=== PATIENT | female | born 1990 | race Caucasian/White ===

== ENCOUNTER 2018-08-09 05:15 | Inpatient (IN) | payer BC ==
[~2018-08-09] VITALS: Ht 165.2 cm; Wt 197.0 kg
[2018-08-09] VITALS (63 sets, daily range): BP systolic 103–148; BP diastolic 50–84; PULSE 78–126; TEMP 97.4–99.3
[~2018-08-09 05:15] MED LIST: CEPHALEXIN500 M1 PO; MOTRIN 600600 MG/TAB PO; OSCAL 500 TAB500 MG; PERCOCET 325 MG1 TA2 PO; PRENATAL1 TA7 PO
--- NOTE | 2018-08-09 06:30 | NUR ---
Assumed care of patient. States not knowing what she wants to do. States maybe would like to v-daniel instead of section. heart tones down in the sixtys for a minute. Repositioned to right side. heart rate back up to [address] Telles called and updated on decel down in the sixtys for a minute. Let him know that heart tones back up to 130s with accelerations noted. Also let him know that patient would like to visit with him about v-daniel verses section.
[2018-08-09 06:38] LABS: BASO % 0.2 % (0.0-2.0); EOS # 0.2 (0.0-0.7); EOS % 1.3 % (0-4.0); HEMOGLOBIN 13.3 g/dl (12.5-16.0); LYMPH # 1.6 (1.2-3.4); LYMPH % 10.1 % (20.0-51.0); MEAN CELL VOLUME 88 fl (80.0-100.0); MEAN CORPUSCULAR HEMOGLOBIN 30 pg (27.0-31.0); MEAN CORPUSCULAR HGB CONC 34 g/dl (33.0-37.0); MEAN PLATELET VOLUME 12.3 fl (7.4-10.4); PLATELET COUNT 162 K/mm3 (130-400); RED BLOOD COUNT 4.43 M/mm3 (4.10-5.30)
--- NOTE | 2018-08-09 07:05 | NUR ---
Dr. Telles here, visits with patient and spouse about . Vag exam done, reports dilated to two, eighty percent effaced, minus two. 0715 New orders to patient. Ambulates to labor room three. heart monitor on. heart rate 130 with accelerations noted. Oriented to room.
--- NOTE | 2018-08-09 07:47 | NUR ---
Pen g 5 million units iv given as ordered and per protocol for group b strep positive.
--- NOTE | 2018-08-09 08:45 | NUR ---
Dr. Telles here, visits with patient. 0849 Arom done, moderate amount of clear fluid noted, pad changed.
--- NOTE | 2018-08-09 10:30 | NUR ---
States contractions getting stronger. Denies wanting any pain medication at this time.
--- NOTE | 2018-08-09 10:45 | NUR ---
1050 Anesthesia notified of request for epidural.
--- NOTE | 2018-08-09 11:00 | NUR ---
1110 Anesthesia here, visits with patient. Sits up for epidural. 1116 Space obtained, and straight shot given by anesthesia Taqueria Guzman c.r.n.a.
--- NOTE | 2018-08-09 11:15 | NUR ---
1122 Lies down after epidural. Spouse at bedside.
--- NOTE | 2018-08-09 11:30 | NUR ---
Rests in bed, alert. States feeling better. Rests with eyes closed, resperations even and unlabored.
--- NOTE | 2018-08-09 11:45 | NUR ---
1150 Pen g 2.5 million units iv given as ordered and per protocol. 1158 Cherry catheter placed per sterile technique. Moderate amount of clear yellow urine noted.
--- NOTE | 2018-08-09 12:15 | NUR ---
Dr. Telles here, visits with patient. Lynettee done, reports same as before. Orders to start pitocin.
--- NOTE | 2018-08-09 12:30 | NUR ---
Pitocin 2 lizbeth units iv started as ordered and per protocol.
--- NOTE | 2018-08-09 13:45 | NUR ---
Rests in bed with eyes closed. Resperations even and unlabored. Spouse at bedside.
--- NOTE | 2018-08-09 15:00 | NUR ---
1510 Dr. Telles here, visits with patient.
--- NOTE | 2018-08-09 16:00 | NUR ---
Rests in bed, alert. Repositioned with peanut ball in between legs.
--- NOTE | 2018-08-09 16:45 | NUR ---
Dr. Telles called and inquired about patient. Let him know that the last time I checked her she was dilated to five. 1649 Tums 1000 mg given per request for heartburn. 1651 Having emisis, cool wash cloth given. States feels better.
--- NOTE | 2018-08-09 17:45 | NUR ---
Rests in bed, alert. Having emisis, cool wash cloth given.
--- NOTE | 2018-08-09 17:57 | NUR ---
Zofran 4 mg iv given for nausea and vomiting and as ordered.
--- NOTE | 2018-08-09 19:20 | NUR ---
Dr. Telles at bedside for SVE. SVE /-1, unchanged from previous exam. Discussing plan of care with patient and spouse, recommending section at this time, due to failure to progress. Pt agreeable to this. Decision for c/section made. 1922 - Anesthesia called. Taqueria Guzman CRNA will come to bedside. 1923 - household appliances service technician and nursery notified.
--- NOTE | 2018-08-09 19:30 | NUR ---
Pt prepped for surgery. Hibiclens to incision site. No need for hair removal. SCDs on. Dad clothes on FOB. Cherry catheter emptied, 100 mL romeo. Fannie at bedside.
--- NOTE | 2018-08-09 19:38 | NUR ---
Monitors removed. Pt transferred to OR by bed with 2 nurse assist accompanied by significant other.
[2018-08-10 00:45] VITALS: BP 122/65; PULSE 112
[2018-08-10 05:00] VITALS: BP 120/71; PULSE 91; TEMP 98.8
[2018-08-10 07:02] LABS: HEMATOCRIT 34.3 % (37.0-47.0); HEMOGLOBIN 11.3 g/dl (12.5-16.0)
[2018-08-10 08:30] VITALS: BP 120/73; PULSE 87; TEMP 98.5
--- NOTE | 2018-08-10 09:16 | NUR ---
Initial visit; Parents thanked Tr[employer] Mechanic for offering congratulations and God's blessings for the of their daughter. Trim Mechanic thanked them for choosing [facility].
[2018-08-10 11:05] VITALS: BP 124/71; PULSE 93; TEMP 98.1
[2018-08-10 16:30] VITALS: BP 125/73; PULSE 88; TEMP 97.3
--- NOTE | 2018-08-10 18:43 | NUR ---
Bedside report received. Care taken over by this RN.
--- NOTE | 2018-08-10 18:44 | NUR ---
Pt resting in bed holding . Meal ordered. D/c board updated. POC for night discussed. Bed in low and locked position. Call light and belongings in reach. Denies further needs at this time.
[2018-08-10 20:51] VITALS: BP 117/77; PULSE 82; TEMP 97.7
[2018-08-11 07:00] VITALS: BP 136/83; PULSE 84
[2018-08-11] MEDS ORDERED: IBU600 MG PO (08:07)
[2018-08-11] MEDS ORDERED: PERCOCET 325 MG1 TA2 PO (08:17)
--- NOTE | 2018-08-11 11:55 | NUR ---
Patient education completed, patient escorted off unit by nursing staff with .
== END 2018-08-11 11:55 | disposition home or self-care (01) | DRG 788 ==
LOC: OB 05:15 → LDR 06:18 → OB 07:47 → LDR 07:54 → OB 21:00
PROVIDERS: ADMIT Obstetrics & Gynecology
PROC: 10D00Z1 Extraction of Products of Conception, Low, Open Approach (ICD-10-PCS; principal; 2018-08-09)
DX: O34.211 Maternal care for low transverse scar from previous cesarean delivery (principal); Z37.0 Single live birth; O99.824 Streptococcus B carrier state complicating childbirth; O62.0 Primary inadequate contractions; O66.2 Obstructed labor due to unusually large fetus; Z3A.40 40 weeks gestation of pregnancy; O67.9 Intrapartum hemorrhage, unspecified; O69.81X0 Labor and delivery complicated by cord around neck, without compression, not applicable or unspecified
CPT/HCPCS: J0690; J1885; J2370; J2405; J2540; J2590; J2795; J3010; J7120